=== PATIENT | female | born 1995 | race Caucasian/White ===

== ENCOUNTER 2017-04-05 16:36 | Emergency (ER) | payer OTHER ==
[2017-04-05 17:09] VITALS: BP 108/60
--- NOTE | 2017-04-05 17:47 | UC ---
UC General HPI - HPI Summary HPI Summary: Patient is her to get a test - History of Current Complaint Chief Complaint: UCGeneralIllness Stated Complaint: TEST Time Seen by Provider: 04/05/17 17:15 Hx Obtained From: Patient Hx Last Menstrual Period: 11/19/15 Onset/Duration: Gradual Onset Timing: Constant Pain Intensity: 0 Associated Signs & Symptoms: Positive: Other - Herion dependence - Allergy/Home Medications Allergies/Adverse Reactions: Allergies Allergy/AdvReac Type Severity Reaction Status Date / Time MS Amoxicillin [Amoxicillin] Allergy Intermediate Vomiting Verified 04/05/17 17: 09 MS Azithromycin Allergy Intermediate Vomiting Verified 04/05/17 17:09 [Azithromycin] MS Clavulanic Acid Allergy Intermediate Vomiting Verified 04/05/17 17:09 [From Augmentin] Home Medications: Home Medications NK [No Home Medications Reported] 04/05/17 [History Confirmed 04/05/17] PMH/Surg Hx/FS Hx/Imm Hx Previously Healthy: Yes Psychological History: Depression - untreated/, Other - opiate addiction-by self reported history Other Psychological History: opiate addiction by self reported history - Surgical History Surgical History: None - Family History Known Family History: Positive: Unknown, Other - Father with alcohol addiction in remission Negative: Renal Disease - Social History Occupation: Unemployed Lives: With Family Alcohol Use: Occasionally Substance Use Type: Heroin Smoking Status (MU): Light Every Day Tobacco Smoker Type: Cigarettes Length of Time of Smoking/Using Tobacco: 3 cigarettes daily - Immunization History Most Recent Influenza Vaccination: [id number] Review of Systems Constitutional: Negative Skin: Negative Eyes: Negative ENT: Negative Respiratory: Negative Cardiovascular: Negative Gastrointestinal: Negative Genitourinary: Negative Motor: Negative Neurovascular: Negative Musculoskeletal: Negative Neurological: Negative Psychological: Negative Is Patient Immunocompromised?: No All Other Systems Reviewed And Are Negative: Yes Physical Exam Triage Information Reviewed: Yes Appearance: Well-Appearing, No Pain Distress, Well-Nourished Vital Signs: Initial Vital Signs Temp 98.7 F 04/05/17 17:05 Pulse 82 04/05/17 17:05 Resp 14 04/05/17 17:05 BP 108/60 04/05/17 17:05 Pulse Ox 100 04/05/17 17:05 Vital Signs Reviewed: Yes Eye Exam: Normal Eyes: Positive: Conjunctiva Clear, Other: - perrla, eomi ENT Exam: Normal ENT: Positive: Normal ENT inspection, Hearing grossly normal, Pharynx normal, TMs normal, Uvula midline. Negative: Nasal congestion, Nasal drainage, Tonsillar swelling, Tonsillar exudate, Trismus, Muffled voice, Hoarse voice, Dental tenderness, Sinus tenderness Dental Exam: Normal Neck exam: Normal Neck: Positive: Supple, Nontender, No Lymphadenopathy Respiratory Exam: Normal Respiratory: Positive: Chest non-tender, Lungs clear, Normal breath sounds, No respiratory distress, No accessory muscle use Cardiovascular Exam: Normal Cardiovascular: Positive: RRR, No Murmur, Pulses Normal, Brisk Capillary Refill Abdominal Exam: Normal Abdomen Description: Positive: Nontender, No Organomegaly, Soft. Negative: CVA Tenderness (R), CVA Tenderness (L), Distended, Guarding, Hernia @, Hepatomegaly , McBurney's Point Tenderness, Peritoneal Signs, Pulsatile Mass, Splenomegaly Bowel Sounds: Positive: Present Musculoskeletal Exam: Normal Musculoskeletal: Positive: Strength Intact, ROM Intact, No Edema Neurological Exam: Normal Neurological: Positive: Alert, Muscle Tone Normal Psychological Exam: Normal Psychological: Positive: Other: - denies Homicidial or suicidial ideation- Skin Exam: Normal Diagnostics - Laboratory Diagnostic Studies Completed/Ordered: upreg (-) Course/Dx - Course Course Of Treatment: Inpatient treatment as planned, increase fluids rest, follow with pcp to ED for any acute issues or concerns - Differential Dx - Multi-Symptom Provider Diagnoses: Opiate addiction by history Discharge - Discharge Plan Condition: Stable Disposition: HOME Patient Education Materials: Opioid Dependence (ED) Forms: *Gen. Provider Communication Referrals: [facility] [Outside] - If Needed
== END 2017-04-05 17:48 | disposition home or self-care (01) ==
LOC: UCCORT 16:36
DX: F11.20 Opioid dependence, uncomplicated (principal); Z32.02 Encounter for pregnancy test, result negative; Z72.89 Other problems related to lifestyle; Z72.0 Tobacco use
CPT/HCPCS: 84702; 99211; G0463

== ENCOUNTER 2017-05-28 20:07 | Emergency (ER) | payer OTHER, MEDICAID ==
[2017-05-28 20:48] VITALS: BP 106/59
--- NOTE | 2017-05-28 21:10 | UC ---
UC General HPI - HPI Summary HPI Summary: Pt presents with headache, nausea and fatigue x 1 week. Pt reports intermittent vomiting. Pt states her gutiérrez in late and reports fe menses was "different" but can't expand. Pt denies fever, chils. No cp, sob. No abd pain. No diarrhea. no discharge, dysuria, hematuria. No vaginal odor, itching. Pt is on suboxone - 60 days sobriety. Pt's medication reviewed this visit - History of Current Complaint Chief Complaint: UCHeadache Stated Complaint: HEADACHE/VOMITING/PREG TEST Time Seen by Provider: 05/28/17 21:10 Hx Last Menstrual Period: 04/08/17 Onset/Duration: Gradual Onset, Lasting Days Onset Severity: Moderate Current Severity: Moderate Pain Intensity: 10 - Allergy/Home Medications Allergies/Adverse Reactions: Allergies Allergy/AdvReac Type Severity Reaction Status Date / Time amoxicillin Allergy Vomiting Verified 05/28/17 20:36 azithromycin Allergy Vomiting Verified 05/28/17 20:36 clavulanic acid Allergy Vomiting Verified 05/28/17 20:36 [From Augmentin] Penicillins Allergy Vomiting Verified 05/28/17 20:40 Home Medications: Home Medications Buprenorphine/Naloxone SL TAB* [Suboxone 8-2 mg SL TAB*] 1 tab.sl SL DAILY 05/28 [History Confirmed 05/28/17] Gabapentin CAP(*) [Neurontin 300 CAP(*)] 300 mg PO TID 05/28/17 [History Confirmed 05/28/17] Mirtazapine TAB* [Remeron TAB*] 15 mg PO BEDTIME 05/28/17 [History Confirmed ] Sertraline* [Zoloft*] 25 mg PO DAILY 05/28/17 [History Confirmed 05/28/17] cloNIDine TAB* [Catapres 0.1 MG TAB*] 0.1 mg PO DAILY 05/28/17 [History Confirmed 05/28/17] hydrOXYzine HCL TAB* [Atarax 25 MG TAB*] 25 mg PO TID PRN 05/28/17 [History Confirmed 05/28/17] PMH/Surg Hx/FS Hx/Imm Hx Previously Healthy: Yes - Surgical History Surgical History: None - Family History Known Family History: Positive: Unknown, Other - Father with alcohol addiction in remission Negative: Renal Disease - Social History Occupation: Unemployed Lives: With Family - current placement in hotel - soon to get apartment Alcohol Use: Occasionally Substance Use Type: Heroin Substance Use Comment - Amount & Last Used: last used 04/06/17 Smoking Status (MU): Light Every Day Tobacco Smoker Type: Cigarettes Amount Used/How Often: 1/2ppd Length of Time of Smoking/Using Tobacco: 3 cigarettes daily - Immunization History Most Recent Influenza Vaccination: [id number] Review of Systems Constitutional: Negative, Fatigue Eyes: Negative ENT: Negative Respiratory: Negative Gastrointestinal: Vomiting, Nausea Motor: Negative Neurovascular: Negative Musculoskeletal: Negative Neurological: Negative Psychological: Negative All Other Systems Reviewed And Are Negative: Yes Physical Exam Triage Information Reviewed: Yes Appearance: Well-Appearing, No Pain Distress, Well-Nourished Vital Signs: Initial Vital Signs Temp 99.8 F 05/28/17 20:35 Pulse 96 05/28/17 20:35 Resp 16 05/28/17 20:35 BP 106/59 05/28/17 20:35 Pulse Ox 100 05/28/17 20:35 Vital Signs Reviewed: Yes Eye Exam: Normal Eyes: Positive: Conjunctiva Clear ENT Exam: Normal ENT: Positive: Normal ENT inspection, Hearing grossly normal, TMs normal Dental Exam: Normal Neck exam: Normal Neck: Positive: Supple, Nontender, No Lymphadenopathy Respiratory Exam: Normal Respiratory: Positive: Chest non-tender, Lungs clear, Normal breath sounds, No respiratory distress, No accessory muscle use Cardiovascular Exam: Normal Cardiovascular: Positive: RRR, No Murmur Abdominal Exam: Normal Abdomen Description: Positive: Nontender, No Organomegaly, Soft Musculoskeletal Exam: Normal Neurological Exam: Normal Neurological: Positive: Alert Psychological Exam: Normal Psychological: Positive: Normal Response To Family Skin Exam: Normal Course/Dx - Course Course Of Treatment: Pt with multiple complaints including fatigue, nausea, headaches. Pt 2 month sobriety from opiates. Pt with + today's visit. Of note, pt with neg pregancy test in Apr at . I spent 20 min with pt disussing and offering support. [facility] Accredited Legal Secretary. Rx vitamins. Pt comfortable and will arrange follow-up tomorrow - Differential Dx - Multi-Symptom Provider Diagnoses: early undetermined Discharge - Sign-Out/Discharge Documenting (check all that apply): Discharge - Discharge Plan Condition: Stable Disposition: HOME Prescriptions: Nitrofurantoin Macrocrystals* [Macrodantin*] 100 mg PO BID #14 cap 21/Iron Fu/Folic Acid [ Complete Caplet] 1 each PO DAILY #60 tablet Patient Education Materials: Urinary Tract Infection in Women (ED), First Trimester (ED) Forms: *Gen. Provider Communication Referrals: [facility] [Outside] [facility] [Outside] No Primary Care Phys,NOPCP [Primary Care Provider] - Ryan Abrams MD [Medical Doctor] - Additional Instructions: - stay well hydrated. drink plenty of non-alcoholic, non-caffinated beverages - take tylenol every 6 hours for pain or fever - take vitamins as prescribed - It is important you schedule a follow-up appointment with an photo studio assistant - you have been given referral contact information - if you develop vaginal bleeding, cramping, back pain or other concerns, you should do directly to the emergency department - Billing Disposition and Condition Condition: STABLE Disposition: HOME
[2017-05-28] MEDS ORDERED: Nitrofurantoin Macrocrystals* 50 MG CAP PO ONE (21:25)
== END 2017-05-28 21:34 | disposition home or self-care (01) ==
LOC: UCCORT 20:07
DX: O26.899 Other specified pregnancy related conditions, unspecified trimester (principal); R51 Headache; R53.83 Other fatigue; O99.330 Smoking (tobacco) complicating pregnancy, unspecified trimester; Z3A.00 Weeks of gestation of pregnancy not specified; Z88.0 Allergy status to penicillin; Z88.3 Allergy status to other anti-infective agents
CPT/HCPCS: 81003; 84702; 87077; 87086; 99212; A9270-GY; G0463

== ENCOUNTER 2018-01-27 07:58 | Inpatient (IN) | payer OTHER ==
[2018-01-27] MEDS ORDERED: Oxytocin in LR* 20 UNITS/1,000 ML BAG IVPB SCH (10:00)
[2018-01-27 10:01] LABS: ABS Basophils 0 10^3/ul (0-0.2); ABS Eosinophils 0.1 10^3/ul (0-0.6); ABS Monocytes 0.4 10^3/ul (0-0.8); ABS Neutrophils 6.7 10^3/ul (1.5-7.7); ABS Nucleated RBC 0 10^3/ul; Eosinophil % 0.7 %; Hematocrit 34 % (35-47); Hemoglobin 11.1 g/dl (12.0-16.0); Lymphocyte % 21.6 %; Mean Corpuscular HGB Conc 33 g/dl (31-36); Mean Corpuscular Hemoglobin 27 pg (27-31); Mean Corpuscular Volume 82 fL (80-97); Mean Platelet Volume 9.1 fL (7.4-10.4); Nucleated Red Blood Cells % 0; Platelet Count 214 10^3/ul (150-450); Red Blood Count 4.11 10^6/ul (4.00-5.40); Red Cell Distribution Width 14 % (10.5-15); White Blood Count 9.3 10^3/ul (3.5-10.8)
--- NOTE | 2018-01-27 15:03 | HP ---
General Information - Reason for Visit Term for induction - General Information Maternal Age: 22 Grav: 2 Para: 1 SAB: 0 IEA: 0 Estimated Due Date: 01/24/18 Determined By: Early Ultrasound Maternal Blood Type and Rh: O Positive - Results this Serology/RPR Result: Non-Reactive Rubella Result: Immune HBsAg Result: Negative HIV Result: Negative GBS Culture Result: Negative Past Medical History Delivery History: Hx Uncomplicated Vaginal Delivery Delivery History Comment: SVB [facility] Pertinent Past Medical History: See Records Past Medical History Comment: Depression/anxiety Drug addiction, currently on Subutex Pertinent Past Surgical History: None Pertinent Family History: Non-Contributory Family History Comment: Breast ca HTN [place] - Antepartal Records Antepartal Records: Reviewed, Complicated by: - Late to care; on Subutex; smoker; +chlamydia during , treated. Review of Systems Constitutional: Comfortable CV Complaint: No Respiratory: Shortness of Breath: No Gastrointestinal: No Nausea/Vomiting, Normal Bowel Movement Genitourinary: No Dysuria, No Bleeding, No Leaking Fluid Musculoskeletal: No Complaint Neurological: No Headache, No Visual Changes Movement: Normal Exam Allergies/Adverse Reactions: Allergies amoxicillin Allergy (Verified 01/27/18 08:25) Hives hives and vomiting per pt clavulanic acid [From Augmentin] Allergy (Verified 01/27/18 08:26) Hives Hves and vomiting per pt Penicillins Allergy (Verified 01/27/18 08:27) Hives hives and vomiting per pt BP 124/81 T 99.2 HR 94 RR 18 O2 99 Lab Values - Entire Visit: Laboratory Tests 01/27/18 01/27/18 09:34 09:34 WBC 9.3 RBC 4.11 Hgb 11.1 L Hct 34 L MCV 82 MCH 27 MCHC 33 RDW 14 Plt Count 214 MPV 9.1 Neut % (Auto) 72.7 Lymph % (Auto) 21.6 Greer % (Auto) 4.7 Eos % (Auto) 0.7 Baso % (Auto) 0.3 Absolute Neuts (auto) 6.7 Absolute Lymphs (auto) 2.0 Absolute Monos (auto) 0.4 Absolute Eos (auto) 0.1 Absolute Basos (auto) 0 Absolute Nucleated RBC 0 Nucleated RBC % 0 Blood Type O Positive Antibody Screen Negative - Measurements Height: 5 ft 3 in Weight: 170 lb Weight in lbs: 170.620304 Body Mass Index (BMI): 30.1 Pre- Weight: 120 lb Weight Gained This : 50 lbs and 0 ozs - Exam Breast: Breast Exam Deferred CVA: No CVA Tenderness Extremities: No Edema Heart: Normal Rhythm/Heart Sounds HEENT: No Significant Findings Lungs: Clear Bilaterally Rectal: Rectal Exam Deferred Reflexes: DTR 2+, - - no clonus Thyroid: - - Assessed WNL @ entry to care - Abdominal Exam Abdomen Exam: Non-Tender, Fundal Height Consistent with Dates - Ultrasound/Biophysical Profile Ultrasound Status: Not Done Targeted Exam Findings See L&D Outpatient Visit Provider Note for Findings: N/A Estimated Weight: 6.5-7lb Cervical Exam: 3cm Effacement: 70% Station: 0 Presenting Part: Vertex Membrane Status: Intact Bleeding/Discharge: None EFM Findings - External Monitor Findings Baseline Heart Rate: 140 External Monitor Findings: Accelerations Present, No Pattern of Variable or Late Decelerations, Variability Moderate Contractions: Irregular, Mild, < 45 Seconds Contraction Frequency: q 3-6 min Assessment/Plan - Assessment IUP @ 40+3 weeks gestation for induction of labor. IBOW. No evidence acidemia - Plan Plan: Induction, Admit - Anticipate Vaginal Delivery Plan Comment: Admit to L&D. TOMY discussion of low dose pitocin for induction, patient in agreement. Will desire epidural when uncomfortable. Anticipate SVB. - Date/Time of Admission Date of Admission: 01/27/18 Time of Admission: 09:07
[2018-01-27] MEDS ORDERED: Nicotine Inhaler* 10 MG AMP INH PRN (16:07)
[2018-01-27] MEDS ORDERED: Mouth Piece, Nicotine* 1 EACH CARTRIDGE ONE (16:45)
[2018-01-27] MEDS ORDERED: Sodium Citrate/Citric Acid* 15 ML UDC PO PRN (19:26)
[2018-01-27] MEDS ORDERED: Famotidine TAB* 20 MG PO PRN (19:26)
[2018-01-27] MEDS ORDERED: Phenylephrine IV* 40 MCG/ML 10 ML SYRINGE IV PUSH PRN ×2 (19:26)
[2018-01-27] MEDS ORDERED: Ropivacaine 0.2% EPIDURAL* 200 MG/100 ML BAG EPIDURAL SCH (20:00)
[2018-01-27] MEDS ORDERED: ROPIVACAINE EPIDURAL SCH (20:00)
[2018-01-27] MEDS ORDERED: Buprenorp/Nalox 8-2 MG SL TAB.SL SL SCH (21:00)
[2018-01-27] MEDS: Buprenorphine TAB* 2 MG TAB.SL SL SCH (23:02)
[2018-01-28] MEDS: Buprenorphine TAB* 2 MG TAB.SL SL SCH ×2 (10:28→21:48)
[2018-01-28] MEDS ORDERED: Glycerin ADULT SUPP PR PRN (12:43)
--- NOTE | 2018-01-28 12:49 | PROCNOTE ---
[facility] OB: Delivery Note - Delivery A Date of : 01/28/18 Time of : 12:15 Osteen Sex: Female - "Lacie" Weight at : 7 lb 13 oz Score 1 Minute: 9 Score 5 Minutes: 9 Gestational Age in Weeks and Days at Delivery: 40 Weeks and 4 Days Delivery Method: Spontaneous Vaginal Labor: Induced Did Patient attempt ?: N/A, No Previous Amniotic Fluid: Clear Estimated Blood Loss: 350 Anesthesia/Analgesia: CEI for Labor Anesthesia Comment: Dr. Walker Delivered By: Ibrahima Cameron - Nursery Level of Nursery: Regular/Bedside - Perineum Perineal Injury: 2nd Degree - and bilateral labial splits. All repaired with 3- 0 Rapide under local infiltration 1% lidocaine and epidural analgesia. Pt tolerated well Perineal Repair: By Delivering Practioner - Events Delivery Events of Note: Pitocin During Labor, Supplemental O2 to Mother - Additional Delivery Notes Additional Delivery Notes: Pt admitted for elective term induction. Received IV pitocin and amniotomy to clear fluid with expected progression to complete. Category II FHT with head on the perineum even though pt felt no pressure or urge to push. O2 by mask and increased IV fluids. Pushed x 6 min to liveborn female. Slow, controlled delivery of head. OA to SHABNAM. Osteen was grasping her cord in both hands under her chin at time of delivery. Released once shoulders delivered with strong maternal push. Osteen vigorous with spontaneous cry. HR>110bpm. Delivered to maternal abdomen. Cord clamped x 2 and cut by pt's sister in law once pulsations ceased. Spontaneous delivery intact placenta. Membranes complete. Fundus firm to massage with IV pitocin infusing, minimal bleeding noted. Repair as above. EBL 350mL. At time of note mother and in stable condition. Planning to both breast and bottle feed per preference.
[2018-01-28] MEDS ORDERED: Oxytocin in LR* 20 UNITS/1,000 ML BAG IVPB SCH (13:00)
[2018-01-28] MEDS: Dibucaine 1% 28.35 GM TUBE PR PRN ×2 (13:48→20:23)
[2018-01-28] MEDS: Docusate CAP* 100 MG PO SCH ×2 (13:48→21:00)
[2018-01-28] MEDS: Ibuprofen TAB* 600 MG PO PRN ×2 (13:48→20:22)
[2018-01-28] MEDS ORDERED: Simethicone TAB* 80 MG TAB.CHEW PO SCH (17:30)
[2018-01-28] MEDS: Witch Hazel PAD* JAR TOPICAL PRN (20:23)
[2018-01-29] MEDS: Ibuprofen TAB* 600 MG PO PRN ×3 (04:25→18:38)
[2018-01-29 06:17] LABS: ABS Basophils 0 10^3/ul (0-0.2); ABS Eosinophils 0.1 10^3/ul (0-0.6); ABS Lymphocytes 2.4 10^3/ul (1.0-4.8); ABS Monocytes 0.8 10^3/ul (0-0.8); ABS Nucleated RBC 0 10^3/ul; Eosinophil % 0.4 %; Hematocrit 26 % (35-47); Hemoglobin 8.2 g/dl (12.0-16.0); Lymphocyte % 14.5 %; Mean Corpuscular HGB Conc 32 g/dl (31-36); Mean Corpuscular Hemoglobin 26 pg (27-31); Mean Corpuscular Volume 82 fL (80-97); Mean Platelet Volume 9.3 fL (7.4-10.4); Nucleated Red Blood Cells % 0; Platelet Count 149 10^3/ul (150-450); Red Blood Count 3.12 10^6/ul (4.00-5.40); Red Cell Distribution Width 14 % (10.5-15); White Blood Count 16.3 10^3/ul (3.5-10.8)
[2018-01-29] MEDS: Ferrous Gluconate TAB* 324 MG TAB PO SCH ×2 (08:53→22:31)
[2018-01-29] MEDS: Docusate CAP* 100 MG PO SCH ×3 (08:54→22:38)
[2018-01-29] MEDS: Buprenorphine TAB* 2 MG TAB.SL SL SCH ×2 (08:54→22:30)
[2018-01-29] MEDS: Acetaminophen TAB* 325 MG PO PRN ×3 (08:55→20:24)
[2018-01-29] MEDS: Dibucaine 1% 28.35 GM TUBE PR PRN ×2 (11:31→20:24)
[2018-01-30] MEDS: Ibuprofen TAB* 600 MG PO PRN ×3 (00:55→14:01)
[2018-01-30] MEDS: Ferrous Gluconate TAB* 324 MG TAB PO SCH (08:01)
[2018-01-30] MEDS: Witch Hazel PAD* JAR TOPICAL PRN (08:01)
[2018-01-30] MEDS: Dibucaine 1% 28.35 GM TUBE PR PRN ×2 (08:01→17:11)
[2018-01-30] MEDS: Buprenorphine TAB* 2 MG TAB.SL SL SCH (09:51)
[2018-01-30 09:57] VITALS: BP 134/78
[2018-01-30] MEDS: Docusate CAP* 100 MG PO SCH (11:49)
[2018-01-30] MEDS: Acetaminophen TAB* 325 MG PO PRN ×2 (11:52→17:11)
== END 2018-01-30 17:30 | disposition home or self-care (01) | DRG 560 ==
LOC: MCHOBOUT 07:58 → MCHOB 09:07
PROVIDERS: ADMIT Midwife; ATTEND Midwife
PROC: 10907ZC Drainage of Amniotic Fluid, Therapeutic from Products of Conception, Via Natural or Artificial Opening (ICD-10-PCS; principal; 2018-01-27)
PROC: 3E033VJ Introduction of Other Hormone into Peripheral Vein, Percutaneous Approach (ICD-10-PCS; 2018-01-27)
PROC: 10E0XZZ Delivery of Products of Conception, External Approach (ICD-10-PCS; 2018-01-27)
PROC: 0KQM0ZZ Repair Perineum Muscle, Open Approach (ICD-10-PCS; 2018-01-27)
PROC: 0UQMXZZ Repair Vulva, External Approach (ICD-10-PCS; 2018-01-27)
PROC: 4A1HXCZ Monitoring of Products of Conception, Cardiac Rate, External Approach (ICD-10-PCS; 2018-01-27)
DX: O99.334 Smoking (tobacco) complicating childbirth (principal); Z37.0 Single live birth; O99.324 Drug use complicating childbirth; Z88.0 Allergy status to penicillin; Z88.1 Allergy status to other antibiotic agents; O48.0 Post-term pregnancy; Z3A.40 40 weeks gestation of pregnancy; F17.210 Nicotine dependence, cigarettes, uncomplicated; O69.89X0 Labor and delivery complicated by other cord complications, not applicable or unspecified; O99.02 Anemia complicating childbirth; O70.1 Second degree perineal laceration during delivery; O99.62 Diseases of the digestive system complicating childbirth; K21.9 Gastro-esophageal reflux disease without esophagitis
CPT/HCPCS: 36415; 80307; 85025; 86850; 86900; 86901; A9270-GY; J2795

== ENCOUNTER 2018-03-20 13:15 | Emergency (ER) | payer OTHER ==
[2018-03-20 13:56] VITALS: BP 112/74
--- NOTE | 2018-03-20 14:21 | UC ---
Abdominal Pain Female HPI - HPI Summary HPI Summary: Pt presents with c/o nasal congestion, generalized nausea, concern for . Pt is breast feeding and is 2 months .Pt has not had period since prior to . - History of Current Complaint Chief Complaint: UCGeneralIllness Stated Complaint: NAUSEA, APPETITE LOSS Time Seen by Provider: 03/20/18 13:44 Hx Obtained From: Patient Hx Last Menstrual Period: childbirth 2 months ago ?: No Onset/Duration: Sudden Onset, Lasting Days, Still Present Timing: Intermittent Episodes Lasting: - nausea Severity Initially: Mild Severity Currently: Mild Pain Intensity: 0 Radiates: No Aggravating Factor(s): Food Alleviating Factor(s): NPO Associated Signs and Symptoms: Positive: Nausea - Risk Factors Ectopic Risk Factor: Negative Ovarian Torsion Risk Factor: Reproductive Age Allergies/Adverse Reactions: Allergies Allergy/AdvReac Type Severity Reaction Status Date / Time amoxicillin Allergy Hives Verified 03/20/18 13:48 clavulanic acid Allergy Hives Verified 03/20/18 13:48 [From Augmentin] Penicillins Allergy Hives Verified 03/20/18 13:48 Home Medications: Home Medications Clindamycin HCl 300 mg PO DAILY 03/20/18 [History Confirmed 03/20/18] Docusate CAP* [Colace Cap*] 100 mg PO TID PRN 03/20/18 [History Confirmed ] PMH/Surg Hx/FS Hx/Imm Hx Previously Healthy: Yes - Surgical History Surgical History: None - Family History Known Family History: Positive: Unknown, Other - Father with alcohol addiction in remission Negative: Renal Disease - Social History Occupation: Employed Full-time, Works From/At Home Lives: With Family Alcohol Use: None Substance Use Type: Heroin, Prescribed Substance Use Comment - Amount & Last Used: last used 04/06/17, takes 6mg subutex BID took 6mg 01/27/18 0630 Smoking Status (MU): Light Every Day Tobacco Smoker Type: Cigarettes Amount Used/How Often: 1/4ppd Length of Time of Smoking/Using Tobacco: 4 cigarettes daily Have You Smoked in the Last Year: Yes Household Exposure Type: Cigarettes - Immunization History Most Recent Influenza Vaccination: [id number] Most Recent Pneumonia Vaccination: none Review of Systems All Other Systems Reviewed And Are Negative: Yes Constitutional: Positive: Fatigue Skin: Positive: Negative Eyes: Positive: Negative ENT: Positive: Nasal Discharge, Sinus Congestion, Other - post nasal dirp Respiratory: Positive: Negative Cardiovascular: Positive: Negative Gastrointestinal: Positive: Nausea Genitourinary: Positive: Negative Motor: Positive: Negative Neurovascular: Positive: Negative Musculoskeletal: Positive: Negative Neurological: Positive: Negative Psychological: Positive: Negative Is Patient Immunocompromised?: No Physical Exam Triage Information Reviewed: Yes Appearance: Well-Appearing Vital Signs: Initial Vital Signs Temp 98.8 F 03/20/18 13:52 Pulse 76 03/20/18 13:52 Resp 17 03/20/18 13:52 BP 112/74 03/20/18 13:52 Pulse Ox 100 03/20/18 13:52 Vital Signs Reviewed: Yes Eye Exam: Normal ENT: Positive: Nasal congestion Dental Exam: Normal Neck exam: Normal Respiratory Exam: Normal Cardiovascular Exam: Normal Abdominal Exam: Normal Abdomen Description: Positive: Nontender Musculoskeletal Exam: Normal Neurological Exam: Normal Psychological Exam: Normal Skin Exam: Normal Abd Pain Female Course/Dx - Course Course Of Treatment: Pt gave urine sample that was "dirty" instead of clean catch. Pt was informed of this and I treated her prior to culture completed pt denied any urinary symptoms - Differential Dx/Diagnosis Provider Diagnosis: Viral syndrome, Bacteria in urine Discharge - Sign-Out/Discharge Documenting (check all that apply): Patient Departure All imaging exams completed and their final reports reviewed: No Studies - Discharge Plan Condition: Stable Disposition: HOME Prescriptions: Nitrofurantoin Monohyd/M-Cryst [Macrobid 100 mg Capsule] 100 mg PO Q12H #14 cap Patient Education Materials: Urinary Tract Infection in Women (ED), Viral Syndrome (ED), Postnasal Drip (DC) Referrals: [facility] [Outside] No Primary Care Phys,NOPCP [Primary Care Provider] - - Billing Disposition and Condition Condition: STABLE Disposition: Home - Attestation Statements Provider Attestation: I was available for consult. This patient was seen by the WENDY. The patient was not presented to, seen by, or examined by me. -Yoshi
--- NOTE | 2018-03-23 06:58 | UC ---
- Progress Note Progress Note: Please notify pt NO UTI STOP antibiotic Recheck if still symptomatic Course/Dx - Diagnoses Provider Diagnoses: Viral syndrome, Bacteria in urine Discharge - Sign-Out/Discharge Documenting (check all that apply): Post-Discharge Follow Up All imaging exams completed and their final reports reviewed: No Studies - Discharge Plan Condition: Stable Disposition: HOME Prescriptions: Nitrofurantoin Monohyd/M-Cryst [Macrobid 100 mg Capsule] 100 mg PO Q12H #14 cap Patient Education Materials: Urinary Tract Infection in Women (ED), Viral Syndrome (ED), Postnasal Drip (DC) [facility]errals: [facility] [Outside] No Primary Care Phys,NOPCP [Primary Care Provider] - - Billing Disposition and Condition Condition: STABLE Disposition: Home
== END 2018-03-20 14:26 | disposition home or self-care (01) ==
LOC: UCCORT 13:15
DX: B34.9 Viral infection, unspecified (principal); R82.998 Other abnormal findings in urine; Z88.0 Allergy status to penicillin; Z88.8 Allergy status to other drugs, medicaments and biological substances; F17.210 Nicotine dependence, cigarettes, uncomplicated
CPT/HCPCS: 81003; 84702; 87086; 99212; G0463

== ENCOUNTER 2018-04-10 10:11 | Emergency (ER) | payer OTHER ==
[2018-04-10 10:54] VITALS: BP 122/81
--- NOTE | 2018-04-10 11:27 | ED ---
GI/ HPI - HPI Summary HPI Summary: 22 yr old female with the complaint of nausea, and vomiting, and doesn't feel like eating, tired. She had onset about a week ago. She states she took a home preg test last week that was positive. She gave in late January. She denies abdominal pain, fever, chills, diarrhea, cough, runny nose. No other symptoms. - History of Current Complaint Chief Complaint: UCGI Time Seen by Provider: 04/10/18 10:58 Stated Complaint: VOMITING Hx Last Menstrual Period: childbirth 2 months ago Pain Intensity: 0 - Allergy/Home Medications Allergies/Adverse Reactions: Allergies Allergy/AdvReac Type Severity Reaction Status Date / Time amoxicillin Allergy Hives Verified 04/10/18 10:50 clavulanic acid Allergy Hives Verified 04/10/18 10:50 [From Augmentin] Penicillins Allergy Hives Verified 04/10/18 10:50 PMH/Surg Hx/FS Hx/Imm Hx Endocrine/Hematology History: Denies: Hx Diabetes Psychiatric History: Reports: Hx Anxiety - formerly in setraline, Hx Depression Infectious Disease History: No Infectious Disease History: Denies: Traveled Outside the [place] in Last 30 Days - Family History Known Family History: Positive: Unknown, Other - Father with alcohol addiction in remission Negative: Renal Disease - Social History Alcohol Use: None Substance Use Type: 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 Negative: Abdominal Pain All Other Systems Reviewed And Are Negative: Yes Physical Exam Triage Information Reviewed: Yes Vital Signs On Initial Exam: Initial Vitals Temp Pulse Resp BP Pulse Ox 97.9 F 74 16 122/81 100 04/10/18 10:50 04/10/18 10:50 04/10/18 10:50 04/10/18 10:50 04/10/18 10:50 Vital Signs Reviewed: Yes Appearance: Positive: Well-Appearing, No Pain Distress Skin: Positive: Warm, Skin Color Reflects Adequate Perfusion Head/Face: Positive: Normal Head/Face Inspection Eyes: Positive: EOMI, LEMUEL ENT: Positive: Pharynx normal. Negative: Nasal drainage Neck: Positive: Supple, Nontender Respiratory/Lung Sounds: Positive: Clear to Auscultation, Breath Sounds Present Cardiovascular: Positive: RRR. Negative: Murmur Abdomen Description: Positive: Nontender. Negative: CVA Tenderness (R), CVA Tenderness (L), Distended Musculoskeletal: Positive: Strength/ROM Intact Neurological: Positive: Sensory/Motor Intact, Alert, Oriented to Person Place, Time, CN Intact II-III, Normal Gait, Speech Normal Psychiatric: Positive: Normal - Oswaldo Coma Scale Best Eye Response: 4 - Spontaneous Best Motor Response: 6 - Obeys Commands Best Verbal Response: 5 - Oriented Coma Scale Total: 15 Diagnostics - Vital Signs Vital Signs Temp Pulse Resp BP Pulse Ox 04/10/18 10:50 97.9 F 74 16 122/81 100 - Laboratory Lab Results: Lab Results 04/10/18 04/10/18 Range/Units 11:04 11:07 POC Urine Color Light yellow POC Urine Clarity Clear POC Urine pH 8.0 (5-9) POC Ur Specif [place] 1.015 (1.010-1.030) POC Urine Protein Negative (Negative) POC Ur Glucose (UA) Negative (Negative) POC Urine Ketones Negative (Negative) POC Urine Blood Negative (Negative) POC Urine Nitrite Negative (Negative) POC Urine Bilirubin Negative (Negative) POC Urine Urobilinogen 0.2 (Negative) POC U Leukocyte Esteras Trace A (Negative) POC Ur Test Negative (Negative) Lab Statement: Any lab studies that have been ordered have been reviewed, and results considered in the medical decision making process. GIGU Course/Dx - Course Course Of Treatment: 22 yr old with nausea and vomiting. Appears well now. DC home. If symptoms not better she will go to the ER. FU with PMD> - Diagnoses Provider Diagnoses: Nausea & vomiting Discharge - Sign-Out/Discharge Documenting (check all that apply): Patient Departure All imaging exams completed and their final reports reviewed: No Studies - Discharge Plan Condition: Good Disposition: HOME Prescriptions: Ondansetron ODT TAB* [Zofran 4 MG Odt TAB*] 4 mg PO Q8H PRN #7 tab.odt PRN Reason: Nausea Patient Education Materials: Acute Nausea and Vomiting (ED) Referrals: No Primary Care Phys,NOPCP [Primary Care Provider] - [facility] [place] - 3 Days - Billing Disposition and Condition Condition: GOOD Disposition: Home
== END 2018-04-10 11:38 | disposition home or self-care (01) ==
LOC: UCCORT 10:11
DX: O21.0 Mild hyperemesis gravidarum (principal); O99.331 Smoking (tobacco) complicating pregnancy, first trimester; F17.210 Nicotine dependence, cigarettes, uncomplicated; Z88.0 Allergy status to penicillin; Z88.1 Allergy status to other antibiotic agents
CPT/HCPCS: 81003; 84702; 87086; 99212; G0463

== ENCOUNTER 2018-08-18 14:05 | Emergency (ER) | payer OTHER ==
--- NOTE | 2018-08-18 15:00 | UC ---
General HPI - HPI Summary HPI Summary: pt is c/o a 4 month hx of fatigue, sometimes dizzy and trouble sleeping for the past 4 months. she describes the dizziness as sometimes feeling lightheaded. pt's last lmp was 2 weeks ago. it was heavy with some clots. it was her 1st period since January. she denies any cp, sob, syncope. she has a hx of insomnia. she admits to weight gain. - History of Current Complaint Chief Complaint: UCGeneralIllness Stated Complaint: NAUSEA DIZZY Time Seen by Provider: 08/18/18 14:22 Hx Obtained From: Patient Hx Last Menstrual Period: 08/02/18 Pain Intensity: 0 Associated Signs & Symptoms: Negative: Abdominal Pain, Palpitations - Allergy/Home Medications Allergies/Adverse Reactions: Allergies Allergy/AdvReac Type Severity Reaction Status Date / Time amoxicillin Allergy Hives Verified 08/18/18 14:17 clavulanic acid Allergy Hives Verified 08/18/18 14:17 [From Augmentin] Penicillins Allergy Hives Verified 08/18/18 14:17 PMH/Surg Hx/FS Hx/Imm Hx - Additional Past Medical History Additional PMH: insomnia, anxiety, in recovery x 1 year. - Surgical History Surgical History: None - Family History Known Family History: Positive: Unknown, Other - Father with alcohol addiction in remission Negative: Renal Disease - Social History Occupation: Employed Part-time Lives: With Family Alcohol Use: None Substance Use Type: Prescribed Substance Use Comment - Amount & Last Used: HAS BEEN SOBER FOR ONE YEAR FROM [facility] Smoking Status (MU): Light Every Day Tobacco Smoker Type: Cigarettes Amount Used/How Often: 1/4ppd Length of Time of Smoking/Using Tobacco: 4 cigarettes daily Have You Smoked in the Last Year: Yes Household Exposure Type: Cigarettes - Immunization History Most Recent Influenza Vaccination: 4721-9496 Most Recent Pneumonia Vaccination: none Review of Systems All Other Systems Reviewed And Are Negative: Yes Constitutional: Positive: Fatigue. Negative: Fever Skin: Negative: Bruising Respiratory: Negative: Shortness Of Breath Cardiovascular: Negative: Palpitations, Chest Pain Physical Exam Triage Information Reviewed: Yes Appearance: Well-Appearing Vital Signs: Initial Vital Signs Temp 97.9 F 08/18/18 14:18 Pulse 82 08/18/18 14:18 Resp 18 08/18/18 14:18 BP 125/77 08/18/18 14:18 Pulse Ox 100 08/18/18 14:18 Vital Signs Reviewed: Yes Eyes: Positive: Conjunctiva Clear - and pink ENT: Positive: Pharynx normal, TMs normal. Negative: Nasal congestion, Nasal drainage Neck: Positive: Supple, Nontender, No Lymphadenopathy Respiratory: Positive: Lungs clear, Normal breath sounds, No respiratory distress Cardiovascular: Positive: RRR, No Murmur Abdomen Description: Positive: Nontender, No Organomegaly, Soft Bowel Sounds: Positive: Present Musculoskeletal: Positive: ROM Intact Neurological: Positive: Alert Psychological: Positive: Age Appropriate Behavior Skin Exam: Normal Skin: Negative: Rashes Course/Dx - Differential Dx - Multi-Symptom Differential Diagnoses: Other - urine hcg=neg. orthostatic vs unremarkable. not hypotensive or tachycardic to imply a critical anemia. thyroid disease and anemia are still possible. hormone imbalances are possible as well. need for close f/u stressed at time of visit. will refer to Dr Petersen practice. - Diagnoses Provider Diagnosis: Fatigue, Insomnia Discharge - Sign-Out/Discharge Documenting (check all that apply): Patient Departure All imaging exams completed and their final reports reviewed: No Studies - Discharge Plan Condition: Stable Disposition: HOME Patient Education Materials: Insomnia (ED), Fatigue (ED) Forms: *Work Release Referrals: Willy Petersen MD [Medical Doctor] - As Soon As Possible - Billing Disposition and Condition Condition: STABLE Disposition: Home
[2018-08-18 15:04] VITALS: BP 128/77
== END 2018-08-18 15:14 | disposition home or self-care (01) ==
LOC: UCCORT 14:05
DX: R53.83 Other fatigue (principal); G47.00 Insomnia, unspecified; F17.210 Nicotine dependence, cigarettes, uncomplicated
CPT/HCPCS: 84702; 99212; G0463